=== PATIENT | female | born 1960 | race African-American/Black ===

== ENCOUNTER 2021-12-27 19:16 | Emergency (ER) | payer BC ==
--- NOTE | 2021-12-27 21:17 | RAD REPORT ---
EXAM DESCRIPTION: RAD - Chest Single View - 12/27/2021 9:10 pm CLINICAL HISTORY: syncope Chest pain. COMPARISON: No comparisons FINDINGS: Portable technique limits examination quality. The lungs are grossly clear. The heart is normal in size. No displaced fractures. IMPRESSION: No acute intrathoracic process suspected.
--- NOTE | 2021-12-27 21:27 | RAD REPORT ---
EXAM DESCRIPTION: CT - Head Brain Wo Cont - 12/27/2021 9:20 pm CLINICAL HISTORY: Syncope, simple, normal neuro exam COMPARISON: No comparisons TECHNIQUE: All CT scans are performed using dose optimization technique as appropriate and may inclu de automated exposure control or mA/KV adjustment according to patient size. FINDINGS: No intracranial hemorrhage, hydrocephalus or extra-axial fluid collection.No areas of brai n edema or evidence of midline shift. The paranasal sinuses and mastoids are clear. The calvarium is intact. IMPRESSION: No acute intracranial abnormality.
[2021-12-27 23:09] LABS: Absolute Lymphocytes (CBC) 1.2 K/uL (0.7-4.9); Hematocrit 37.8 % (36.0-45.0); MCV 94.4 fL (80-100); MPV 8.5 fL (7.6-11.3); Protime INR 1.06
[2021-12-27 23:46] LABS: ALT/SGPT 28 U/L (12-78); AST/SGOT 14 U/L (15-37); Albumin 3.9 g/dL (3.4-5.0); Alkaline Phosphatase 101 U/L (45-117); BUN Blood Urea Nitrogen 19 mg/dL (7-18); Bicarbonate 27 mmol/L (21-32); Bilirubin Total 0.2 mg/dL (0.2-1.0); Glomerular Filtration Rate 69 ml/min (=/>90); Glucose Level 127 mg/dL (74-106); Magnesium 2.4 mg/dL (1.8-2.4); NT PRO-BNP 60 pg/mL (<125); Potassium 4.2 mmol/L (3.5-5.1); Protein, Total 7.6 g/dL (6.4-8.2); Sodium Level 139 mmol/L (136-145); Troponin High Sensitivity 6.9 pg/mL (<58.9)
[2021-12-27 23:53] LABS: Bilirubin Direct < 0.1 mg/dL (0-0.2)
--- NOTE | 2021-12-28 00:53 | EDPHYS ---
Physician Documentation [facility] Name: Roxana Stacy Age: 61 yrs Sex: Female : 1960 Arrival Date: 12/27/2021 Time: 19:27 Bed 8 Private MD: ED Physician Kee Moon HPI: 12/27 19:35 This 61 yrs old Black Female presents to ER via EMS with complaints of Syncope. cp 19:35 The patient has experienced syncope, lost consciousness. cp 19:35 Onset: The symptoms/episode began/occurred just prior to arrival. Duration: The patient cp has had multiple episodes, that last an unknown period of time. Context: the episode(s) was witnessed, by a significant other, , occurred at home, occurred while the patient was sitting outside. Just prior to the episode the patient experienced no apparent symptoms. 19:35 Associated injury: The patient did not suffer any apparent associated injury. cp 19:35 Current symptoms: general weakness. EMS reports that syncopal episode was witnessed by cp and that patient had been smoking marijuana prior to syncopal episodes. Historical: - Allergies: 19:29 No Known Allergies; ss - Immunization history:: Flu vaccine is not up to date. - Social history:: Smoking status: Patient denies any tobacco usage or history of. Patient uses alcohol, on a daily basis. street drugs, marijuana. ROS: 19:40 Constitutional: Negative for body aches, chills, fever, poor PO intake. cp 19:40 Eyes: Negative for injury, pain, redness, and discharge. cp 19:40 ENT: Negative for drainage from ear(s), ear pain, rhinorrhea, sore throat, difficulty swallowing, difficulty handling secretions. 19:40 Neck: Negative for pain with movement, pain at rest, stiffness. 19:40 Cardiovascular: Negative for chest pain, edema, palpitations. 19:40 Respiratory: Negative for cough, shortness of breath, wheezing. 19:40 Abdomen/GI: Negative for abdominal pain, nausea, vomiting, and diarrhea, constipation, black/tarry stool, rectal bleeding. 19:40 Back: Negative for pain at rest, pain with movement. 19:40 : Negative for urinary symptoms. 19:40 Neuro: Positive for syncope, weakness, Negative for altered mental status, dizziness, headache, numbness, seizure activity. 19:40 All other systems are negative. Exam: 19:45 Constitutional: The patient appears in no acute distress, alert, awake, cp non-diaphoretic, non-toxic, well developed, well nourished, obese. 19:45 Head/Face: Normocephalic, atraumatic. cp 19:45 Eyes: Periorbital structures: appear normal, Pupils: equal, round, and reactive to light and accomodation, Extraocular movements: intact throughout, Conjunctiva: normal, no exudate, no injection, Sclera: no appreciated abnormality, Lids and lashes: appear normal, bilaterally. 19:45 ENT: External ear(s): are unremarkable, Nose: is normal, Mouth: Lips: moist, Oral mucosa: pink and intact, moist, Posterior pharynx: Airway: no evidence of obstruction, patent. 19:45 Neck: C-spine: vertebral tenderness, that is mild, crepitus, is not appreciated, ROM/movement: is normal, is supple, without pain, no range of motions limitations, no nuchal rigidity. 19:45 Chest/axilla: Inspection: normal. 19:45 Cardiovascular: Rate: normal, Rhythm: regular, Heart sounds: murmur, not appreciated, Edema: is not appreciated, JVD: is not appreciated. 19:45 Respiratory: the patient does not display signs of respiratory distress, Respirations: normal, no use of accessory muscles, no retractions, labored breathing, is not present, Breath sounds: are clear throughout, no decreased breath sounds, no stridor, no wheezing. 19:45 Abdomen/GI: Inspection: abdomen appears normal, Bowel sounds: active, all quadrants, Palpation: abdomen is soft and non-tender, in all quadrants. 19:45 Back: pain, is absent, ROM is normal. 19:45 Musculoskeletal/extremity: Exam is negative for decreased range of motion, deformity, injury. 19:45 Neuro: Orientation: to person, place \\T\\ time. Mentation: is normal, Cerebellar function: is grossly normal, Motor: moves all fours, strength is normal, Sensation: is normal. 22:35 ECG was reviewed by the Attending Physician. cp Vital Signs: 19:27 BP 124 / 67; Pulse 73; Resp 14; Temp 98.0(TE); Pulse Ox 95% on R/A; Weight 93.44 kg; ss Height 5 ft. 7 in. (170.18 cm); Pain 0/10; 22:30 BP 129 / 72; Pulse 80; Resp 18; Pulse Ox 100% on R/A; tw5 23:16 BP 122 / 71; Pulse 74; Resp 15; Pulse Ox 100% on R/A; kd3 23:56 BP 123 / 70; Pulse 75; Resp 15; Pulse Ox 100% on R/A; kd3 12/28 01:11 BP 124 / 72; Pulse 81; Resp 18; Pulse Ox 100% on R/A; kd3 12/27 19:27 Body Mass Index 32.26 (93.44 kg, 170.18 cm) ss MDM: 12/27 19:31 Patient medically screened. cp 20:00 Differential Diagnosis: cardiac arrhythmia, cerebrovascular accident, drug effect, cp emotional response, GI bleed, pseudo seizure, seizure, transient ischemic attack, vasovagal episode. 12/28 00:49 Data reviewed: vital signs, nurses notes, lab test result(s), EKG, radiologic studies, cp CT scan, plain films. Test interpretation: by ED physician or midlevel provider: ECG, plain radiologic studies. ED course: VSS. Discussed results of labs, EKG and radiology studies that were negative for significant findings at this time. Discussed continued observation vs discharge to home to f/u with family physician. Patient requesting discharge to home. 12/27 19:31 Order name: Basic Metabolic Panel; Complete Time: 00:14 cp 12/28 00:14 Interpretation: Normal except: GLUC 127; BUN 19; GFR 69. cp 12/27 19:31 Order name: CBC with Diff; Complete Time: 00:14 cp 12/28 00:15 Interpretation: Normal except: BALBIR% 75.9. cp 12/27 19:31 Order name: LFT's; Complete Time: 00:14 cp 12/28 00:15 Interpretation: Normal except: AST 14; GLOB 3.7. cp 12/27 19:31 Order name: Magnesium; Complete Time: 00:14 cp 12/27 19:31 Order name: NT PRO-BNP; Complete Time: 00:14 cp 12/27 19:31 Order name: PT-INR; Complete Time: 00:14 cp 12/27 19:31 Order name: Troponin HS; Complete Time: 00:14 cp 12/28 00:45 Interpretation: Reviewed. 12/27 19:31 Order name: XRAY Chest (1 view); Complete Time: 22:08 cp 12/27 22:08 Interpretation: Report review. 12/27 19:31 Order name: EKG; Complete Time: 19:31 cp 12/27 19:31 Order name: Cardiac monitoring; Complete Time: 22:06 cp 12/27 19:31 Order name: CT Head Brain wo Cont; Complete Time: 22:08 cp 12/27 19:44 Order name: COVID-19 SARS RT PCR (Document "Date of Onset" if Symptomatic); Complete cp Time: 00:14 12/28 00:25 Order name: ETOH Level; Complete Time: 00:44 cp 12/28 00:44 Interpretation: Reviewed. 12/28 00:25 Order name: LAB Add On cp 12/27 19:31 Order name: EKG - Nurse/Tech; Complete Time: 22:26 cp 12/27 19:31 Order name: IV Saline Lock; Complete Time: 22:26 cp 12/27 19:31 Order name: Labs collected and sent; Complete Time: 22:26 cp 12/27 19:31 Order name: O2 Per Protocol; Complete Time: 22:26 cp 12/27 19:31 Order name: O2 Sat Monitoring; Complete Time: 22:26 cp EC/06 22:35 Rate is 75 beats/min. Rhythm is regular. NC interval is normal. QRS interval is normal. cp QT interval is normal. T waves are Inverted in lead aVR. Interpreted by me. Reviewed by me. Administered Medications: No medications were administered Disposition: 12/28 04:40 Co-signature as Attending Physician, Kee Moon MD. rn Disposition Summary: 12/28/21 00:52 Discharge Ordered Location: Home cp Problem: new cp Symptoms: have improved cp Condition: Stable cp Diagnosis - Heat syncope, initial encounter cp Followup: cp - With: Private Physician - When: 1 - 2 days - Reason: Recheck today's complaints Discharge Instructions: - Discharge Summary Sheet cp - Syncope cp - Aspirin and Your Heart cp Forms: - Medication Reconciliation Form cp - Thank You Letter cp - Antibiotic Education cp - Prescription Opioid Use cp Signatures: Dispatcher [employer] EDKee Eisenberg MD MD rn Smirch, Shelby, RN RN ss Page, Corey, PA PA Kori Emerson tw5
--- NOTE | 2021-12-28 00:53 | ER ---
Nurse's Notes [facility] Name: Roxana Stacy Age: 61 yrs Sex: Female : 1960 Arrival Date: 12/27/2021 Time: 19:27 Bed 8 Private MD: Diagnosis: Heat syncope, initial encounter Presentation: 12/27 19:27 Chief complaint: EMS states: Syncopal episode witnessed by EMS staff after patient ss reportedly smoked marijuana. Pt has no complaints at this time. Appears drowsy. Initial BP 80/40s improved after 300 mL of NS. Coronavirus screen: Client denies travel out of the [place] in the last 14 days. Ebola Screen: Patient denies exposure to infectious person. Patient denies travel to an Ebola-affected area in the 21 days before illness onset. Initial Sepsis Screen: Does the patient meet any 2 criteria? No. Patient's initial sepsis screen is negative. Does the patient have a suspected source of infection? No. Patient's initial sepsis screen is negative. Risk Assessment: Do you want to hurt yourself or someone else? Patient reports no desire to harm self or others. Onset of symptoms was December 27, 2021. Care prior to arrival: Glucose check: 134. 19:27 Method Of Arrival: EMS: [facility] 19:27 Acuity: GARETH 3 ss Triage Assessment: 22:30 General: Appears in no apparent distress. Behavior is calm, cooperative, appropriate tw5 for age. Neuro: Denies weakness. 23:15 Neuro: Reports dizziness. kd3 Historical: - Allergies: 19:29 No Known Allergies; ss - Immunization history:: Flu vaccine is not up to date. - Social history:: Smoking status: Patient denies any tobacco usage or history of. Patient uses alcohol, on a daily basis. street drugs, marijuana. Screenin:26 Abuse screen: Denies threats or abuse. Denies injuries from another. Nutritional tw5 screening: No deficits noted. Tuberculosis screening: No symptoms or risk factors identified. Fall Risk None identified. Assessment: 22:26 General:. Pain: Denies pain. Neuro: Level of Consciousness is awake, alert, obeys tw5 commands, Oriented to person, place, time, situation. 22:26 General: reports " When she gets home she usually has a drink and a smoke, but tw5 what unusual was her passing out and not responding me. When she woke up she threw up.". Cardiovascular: Rhythm is sinus rhythm. Respiratory: Airway is patent Trachea midline Respiratory effort is even, unlabored. 23:16 General: Appears in no apparent distress. Behavior is calm, cooperative. kd3 Vital Signs: 19:27 BP 124 / 67; Pulse 73; Resp 14; Temp 98.0(TE); Pulse Ox 95% on R/A; Weight 93.44 kg; ss Height 5 ft. 7 in. (170.18 cm); Pain 0/10; 22:30 BP 129 / 72; Pulse 80; Resp 18; Pulse Ox 100% on R/A; tw5 23:16 BP 122 / 71; Pulse 74; Resp 15; Pulse Ox 100% on R/A; kd3 23:56 BP 123 / 70; Pulse 75; Resp 15; Pulse Ox 100% on R/A; kd3 12/28 01:11 BP 124 / 72; Pulse 81; Resp 18; Pulse Ox 100% on R/A; kd3 12/27 19:27 Body Mass Index 32.26 (93.44 kg, 170.18 cm) ED Course: 12/27 19:27 Patient arrived in ED. ss 19:27 Teto Bai PA is PHCP. cp 19:27 Kee Moon MD is Attending Physician. cp 19:29 Triage completed. ss 19:29 Arm band placed on right wrist. 20:29 Janine Bernard, RN is Primary Nurse. kd3 21:12 XRAY Chest (1 view) In Process Unspecified. EDMS 21:22 CT Head Brain wo Cont In Process Unspecified. EDMS 22:26 Awaiting lab results. tw5 22:26 Patient has correct armband on for positive identification. Placed in gown. Bed in low tw5 position. Call light in reach. Side rails up X2. Adult w/ patient. Client placed on continuous cardiac and pulse oximetry monitoring. NIBP monitoring applied. Door closed. Noise minimized. Lights dimmed. 22:26 Basic Metabolic Panel Sent. tw5 22:26 CBC with Diff Sent. tw5 22:26 LFT's Sent. tw5 22:26 Magnesium Sent. tw5 22:26 NT PRO-BNP Sent. tw5 22:26 PT-INR Sent. tw5 22: Troponin HS Sent. 22:26 COVID-19 SARS RT PCR (Document "Date of Onset" if Symptomatic) Sent. 22:26 Initial lab(s) drawn, by me, sent to lab. COVID swab sent to lab. Maintain EMS IV. tw5 Dressing intact. Good blood return noted. Site clean \\T\\ dry. Gauge \\T\\ site: 20 LAC. 12/28 01:10 No provider procedures requiring assistance completed. IV discontinued, intact, kd3 bleeding controlled, No redness/swelling at site. Pressure dressing applied. Administered Medications: No medications were administered Medication: 12/27 22:26 VIS not applicable for this client. Outcome: 12/28 00:52 Discharge ordered by . salome 01:11 Discharged to home via wheelchair, with family. kd3 01:11 Condition: stable 01:11 Discharge instructions given to patient, family, Instructed on discharge instructions, follow up and referral plans. 01:12 Patient left the ED. kd3 Signatures: Dispatcher [employer] EDGabriella Archer RN RN Teto Ingram PA PA cp Wood, Tiffany 5 Janine Bernard RN RN kd3
[2021-12-28 01:30] VITALS: TEMP 98
[2021-12-28 01:31] VITALS: O2SAT 100
[2021-12-28 01:35] VITALS: BP 124/72
--- NOTE | 2021-12-28 13:51 | EKG ---
Test Date: 2021-12-27 Test Time: 22:29:40 Mgmt Analyst: GLENNA MEASUREMENT RESULTS: Intervals: Rate: 75 MN: 182 QRSD: 76 QT: 386 QTc: 431 [place]: P: 59 MN: 182 QRS: -14 T: 15 INTERPRETIVE STATEMENTS: Normal sinus rhythm Septal infarct, age undetermined Abnormal ECG Compared to ECG 12/27/2021 22:28:49 Sinus arrhythmia no longer present Right superior axis no longer present Myocardial infarct finding still present Electronically Signed On 12-28-21 13:50:23 CDT by Woody Ogden
--- NOTE | 2021-12-28 13:52 | EKG ---
Test Date: 2021-12-27 Test Time: 22:28:49 Marketing Information Coordinator: GLENNA MEASUREMENT RESULTS: Intervals: Rate: 79 MS: 186 QRSD: 76 QT: 384 QTc: 440 [place]: P: MS: 186 QRS: 198 T: 141 INTERPRETIVE STATEMENTS: Normal sinus rhythm with sinus arrhythmia Right superior axis deviation Septal infarct, age undetermined Abnormal ECG No previous ECG available for comparison Electronically Signed On 12-28-21 13:50:24 CDT by Woody Ogden
== END 2021-12-28 01:12 | disposition home or self-care (01) ==
LOC: ER 19:16
DX: T67.1XXA Heat syncope, initial encounter (principal); Z20.822 Contact with and (suspected) exposure to COVID-19
CPT/HCPCS: 93005 ×2; 85025; 80048; 36415 ×2; 80320; 83735; 85610; 80076; 84484; 83880; 70450; 71045; U0003

== ENCOUNTER 2022-03-06 05:10 | Observation (INO) | payer BC ==
[2022-03-01 09:55] LABS: Absolute Lymphocytes (CBC) 1.9 K/uL (0.7-4.9); Hematocrit 38.3 % (36.0-45.0); Lymphocytes % 40.4 % (15.3-44.8); MCV 92.3 fL (80-100); RBC Red Blood Cell Count 4.15 M/uL (3.86-4.86)
[2022-03-01 10:00] LABS: Protime INR 0.94
[2022-03-01 10:08] LABS: Specific Gravity > 1.030 (1.005-1.030); Urine Bacteria <20 /HPF (<20); Urine Bilirubin NEGATIVE (Negative); Urine Blood Negative (Negative); Urine Clarity Clear (Clear); Urine Color Light-Yellow (Yellow); Urine Glucose NEGATIVE (Negative); Urine Mucus Slight /HPF (None Seen); Urine Protein TRACE (Negative); Urine RBC <5 /HPF (None Seen); Urine Urobilinogen Normal (Normal); Urine pH 5.5 (5.0-7.0)
[2022-03-01 10:10] LABS: SARS-CoV-2 Antigen Rapid Res Negative (Negative)
[2022-03-01 10:14] LABS: Albumin 3.9 g/dL (3.4-5.0); Bilirubin Total 0.3 mg/dL (0.2-1.0); Potassium 4.1 mmol/L (3.5-5.1); Protein, Total 7.9 g/dL (6.4-8.2)
[2022-03-06] MEDS ORDERED: GABAPENTIN 100 MG CAP ONE (05:51)
[2022-03-06] MEDS ORDERED: CELECOXIB 100 MG CAPSULE ONE (05:51)
[2022-03-06] MEDS ORDERED: Oxycodone HCl/Acetaminophen 1 TAB TAB ONE (05:52)
[2022-03-06] MEDS ORDERED: ACETAMINOPHEN 500 MG TAB ONE (05:52)
[2022-03-06] MEDS ORDERED: CEFAZOLIN 2 GM IN 0.9% NACL 2 GM/100 ML BAG ONE (05:52)
[2022-03-06] MEDS ORDERED: Ringers Lactate 1,000 ML IV ONE (05:52)
[2022-03-06] MEDS ORDERED: propofoL 200 MG/20 ML VIAL IV ONE (06:16)
[2022-03-06] MEDS ORDERED: FENTANYL CITR 100 MCG/2 ML ONE (06:16)
[2022-03-06] MEDS ORDERED: MIDAZOLAM HCL 2 MG/2 ML INJ ONE (06:16)
[2022-03-06] MEDS ORDERED: LIDOCAINE 2% MPF 5 ML VIAL ONE (06:16)
[2022-03-06] MEDS ORDERED: BUPIVACAINE 0.5% Inj,MDV 50 mL VIAL ONE (06:23)
[2022-03-06] MEDS ORDERED: LIDOCAINE 1% MPF 5 ML VIAL ONE (06:23)
[2022-03-06] MEDS ORDERED: dexAMETHasone 4 MG/ML VIAL ONE (06:23)
[2022-03-06] MEDS ORDERED: BUPIVACAINE 0.25% PF 10 ML VIAL ONE (06:23)
[2022-03-06] MEDS ORDERED: TRANEXAMIC ACID 1,000 MG/10 ML VIAL IV ONE (07:11)
[2022-03-06] MEDS ORDERED: HYDROMORPHONE HCL 1 MG/ML INJ ONE (07:12)
[2022-03-06] MEDS ORDERED: ONDANSETRON 4 MG/2 ML VIAL ONE (07:19)
[2022-03-06] MEDS ORDERED: DOCUSATE NA 100 MG CAP PO PRN (09:43)
[2022-03-06] MEDS ORDERED: ONDANSETRON 4 MG/2 ML VIAL IV PRN (09:43)
--- NOTE | 2022-03-06 09:43 | P.BOP ---
Preoperative diagnosis: right knee arthritis Postoperative diagnosis: same Primary procedure: right total knee arthoplasty Estimated blood loss: 100 ccs Anesthesia: General Complications: None Transferred to: Recovery Room Condition: Good
--- OUTSIDE RECORDS SUMMARY | 2022-03-06 11:05 | XMS REPORT | Continuity of Care Document ---
:1960 Author Organization [facility] t Address [address] [place] [address] Care Team Providers Name Role Phone Maranda Kwon MD Primary Care Physician Maranda Kwon MD Attending Clinician [phone] Doctor Unassigned, [place] Attending Clinician Unavailable Payers Payer Name Policy Type Policy Number Effective Date Expiration Date S ource Problems Condition Condition Condition Status Onset Resolution Last Treating Co mments Source Name Details Category Date Date Treatment Clinician Date Diet-contr Diet-contr Disease Active U nivers olled olled 3-17 ity of diabetes diabetes 00:00: [place] mellitus mellitus 00 Medica l Branch Chronic Chronic Disease Active Univers pain of pain of 3-17 [place] Obesity Obesity Disease Active 2018- Univers (BMI (BMI 6-06 ity of 30-39.9) 30-39.9) 00:00: [address] Allergies, Adverse Reactions, Alerts This patient has no known allergies or adverse reactions. Social History Social Habit Start Date Stop Date Quantity Comments Source History of Cigar Smoker University o f tobacco use [facility] Exposure to 2022-01-15 2022-01-25 Not sure University SARS-CoV-2 00:00:00 14:19:00 [place] [facility] (event) [facility] Cigarette 2022-01-25 2022-01-25 University of pack-years 00:00:00 00:00:00 [facility] Tobacco use and 2022-01-25 2022-01-25 Smokeless tobacco Un iversity of exposure 00:00:00 00:00:00 non-user [facility] Alcohol intake 2022-01-25 2022-01-25 .14 /d University of 00:00:00 00:00:00 [facility] Tobacco Comment 2022-01-25 2022-01-25 ciggars Universit y of 00:00:00 00:00:00 occasionally [place] Medica l Branch History [facility] 2018-11-27 2018-11-27 5 University o f Alcohol Frequency 00:00:00 00:00:00 [place] M edical Branch History [facility] 2018-11-27 2018-11-27 1 University o f Alcohol Std 00:00:00 00:00:00 [place] Medical Drinks Branch History [facility] 2018-11-27 2018-11-27 1 [place] o f Alcohol Binge 00:00:00 00:00:00 [place] Medic al Branch Alcohol Comment 2018-11-27 2018-11-27 to get relaxed Unive rsity of 00:00:00 00:00:00 [facility] Sex Assigned At [birth year] Universit y of 00:00:00 00:00:00 [facility] Smoking Status Start Date Stop Date Source Light tobacco smoker 2022-01-25 00:00:00 Univers ity of [facility] Medications Ordered Filled Start Stop Current Ordering Indication Dosage Frequency Signature Comments Components Source Medication Medication Date Date Medication? Clinician (SIG) Name Name allopurinoL Yes [id number] 100mg Take 1 Univers 100 mg 8-09 tablet by ity of tablet 00:00: mouth in [place] [address] the Medical morning Branch and 1 tablet in the evening. diclofenac Yes [id number] TAKE 1 Univers 75 mg EC 8-09 TABLET BY ity of tablet 00:00: MOUTH [place] [address] THREE Medical TIMES Branch DAILY WITH FOOD allopurinoL Yes [id number] 100mg Take 1 Univers 100 mg 8-09 tablet by ity of tablet 00:00: mouth in [place] [address] the Medical morning Branch and 1 tablet in the evening. diclofenac Yes [id number] TAKE 1 Univers 75 mg EC 809 TABLET BY ity of tablet 00:00: MOUTH [place] [address] THREE Medical TIMES [place] DAILY WITH FOOD Immunizations Ordered Filled Immunization Date Status Comments Sourc e Immunization Name Name SARS-COV-2 COVID-19 2021-06-19 Completed Unive rsity of CHARLES/J&J VACCINE 00:00:00 [facility] SARS-COV-2 COVID-19 2021-06-19 Completed Unive rsity of CHARLES/J&J VACCINE 00:00:00 [facility] SARS-COV-2 COVID-19 2020-09-02 Completed Unive rsity of CHARLES/J&J VACCINE 00:00:00 [facility] SARS-COV-2 COVID-19 2020-09-02 Completed Unive rsity of CHARLES/J&J VACCINE 00:00:00 [facility] Vital Signs Vital Name Observation Time Observation Value Comments Source Systolic blood 2022-02-15 20:21:00 126 mm[Hg] Univer sity of pressure [facility] Diastolic blood 2022-02-15 20:21:00 73 mm[Hg] Unive rsity of pressure [facility] Heart rate 2022-02-15 20:21:00 92 /min [facility] Body temperature 2022-02-15 20:20:00 36.22 [facility] Respiratory rate 2022-02-15 20:20:00 18 /min [facility] Body height 2022-02-15 20:20:00 170.2 cm [facility] Body weight 2022-02-15 20:20:00 90.266 kg [facility] BMI 2022-02-15 20:20:00 31.17 kg/m2 [facility] Procedures Procedure Date / Time Performed Performing Clinician Sourkaela e POCT HEMOGLOBIN A1C 2022-02-15 21:09:00 Maranda Kwon [facility] TEST A [facility] MEDICAL 2022-02-05 05:01:00 Doctor Unassigned, No [facility]iver [facility] RELEASE/CLEARANCE Name Medical Branch FORMS Encounters Start End Encounter Admission Attending Care Care Encounter Source Date/Time Date/Time Type Type Clinicians Facility Department ID 2022-02-09 Outpatient [facility]LMLC ST[facility]C [id number] Common 10:07:04 [facility] 2022-02-05 Outpatient STLMLC STLMLC [id number] Common 14:31:04 [facility] 2022-03-05 2022-03-05 ambulatory STLMLC STLMLC [id number] Common 00:00:00 00:00:00 [facility] 2022-02-15 2022-02-15 Office Cher ALAMIRAH [id number] [facility] [place] [place] 15:00:00 16:09:57 Visit Maranda DAVID [id number] [id number] [id number] [address] 2022-02-05 2022-02-05 Orders Doctor SHELLY [id number] Univers 00:00:00 00:00:00 Only Unassigned, FINA [id number] ity of [place] [facility] [id number] [place] [id number] [address] 2022-02-05 2022-02-05 ambulatory STLMLC STLMLC [id number] Common 00:00:00 00:00:00 [facility] 2022-02-05 2022-02-05 ambulatory STLMLC STLMLC [id number] Common 00:00:00 00:00:00 [facility] Results Test Description Test Time Test Comments Results Result Comments Source POCT HEMOGLOBIN A1C TEST 2022-02-15 21:10:00 Test Item Value Reference Range Interpretation Comme nts POCT HBA1C (test code = 4548-4) 6.3 % 4-6 A Lab Interpretation (test code = 73940-1) Abnormal [facility]
[2022-03-06 11:36] VITALS: BMI 31.1
--- NOTE | 2022-03-06 12:26 | P.CNS ---
Date of Consult: 03/06/22 Reason for Consult: Medical Management Requesting Physician: Philippe Rodriguez Chief Complaint: S/P Right Knee Replacement History of Present Illness: Ms. Roxana Stacy is a 61 year old female who has a past medical history of prediabetes, gout, and osteoarthritis who presents to the [facility] for a scheduled right total knee arthroplasty. Earlier today, she underwent a right total knee arthroplasty with Dr. Rodriguez, without any apparent complications. General Internal Medicine was asked to consult on her case for medical management. She was seen in the PACU and appeared comfortable. She reports that her pain is well controlled. She endorses no major medical issues outside of arthritis and gout. She reports having arthritis and knee pain for years. She denies any obvious inciting or alleviating factors. She denies history of rheumatoid arthritis. She has tried taking [id number] NSAIDs, without alleviation of her symptoms. Prior to surgery, her pain was a 10/10 in severity. Currently, she has no concerns or complaints. Post-operatively, her vital signs are stable. She will be admitted to the Orthopedic Surgery service under observation status to a Med/Surg floor. Allergies No Known Allergies Allergy (Verified 03/06/22 06:32) Home medications list reviewed: Yes Home Medications: Allopurinol 100 mg PO BID 03/01/22 Collagen/Biotin/Ascorbic Acid [Collagen 1500 Plus C Capsule] 1 each PO DAILY 03/01/22 Diclofenac Sodium [Voltaren] 75 mg PO BID 03/01/22 Multivitamin 1 each PO DAILY 03/01/22 - Past Medical/Surgical History Diabetic: No -: borderline diabetes, no treatement -: arthritis -: gout -: knee injections -: right knee arthroscopy - Family History Father History Unknown: Yes Mother History Unknown: Yes - Social History Smoking Status: Light Tobacco smoker (1-9 cigarettes/day) Alcohol use: Yes CD- Drugs: No Caffeine use: Yes Place of Residence: Home Review of Systems 10-point ROS is otherwise unremarkable General: Unremarkable Eyes: Unremarkable ENT: Unremarkable Respiratory: Unremarkable Cardiovascular: Unremarkable Gastrointestinal: Unremarkable Genitourinary: Unremarkable Musculoskeletal: Foot Pain (chronic, now post-op TKA) Integumentary: Unremarkable Neurological: Unremarkable Lymphatics: Unremarkable Physical Examination Temp Pulse Resp BP Pulse Ox 97.0 F 79 16 146/71 H 99 03/06/22 11:31 03/06/22 11:31 03/06/22 11:31 03/06/22 11:31 03/06/22 11:31 General: Alert, In no apparent distress, Oriented x3 HEENT: Atraumatic, PERRLA, Mucous membr. moist/pink, EOMI, Sclerae nonicteric Neck: Supple, JVD not distended Respiratory: Clear to auscultation bilaterally, Normal air movement Cardiovascular: No edema, Regular rate/rhythm, Normal S1 S2, No gallops, No rubs, No murmurs Gastrointestinal: Normal bowel sounds, Soft and benign, Non-distended Musculoskeletal: No clubbing, Other (right knee in surgical dressing and elevated) Integumentary: No rashes Neurological: Normal speech, Cranial nerves 3-12 intact, Normal affect Conclusions/Impression: DIAGNOSES: # Right Knee Osteoarthritis s/p Total Right Knee Arthroplasty (03/06/2022) # Tobacco Use Disorder # Gout # Prediabetes RECOMMENDATIONS: - Consult PT/OT - Consider obtaining Hgb A1c - Can resume home allopurinol when tolerating PO - Would avoid home Diclofenac and other NSAIDs due to risk of bleeding - Pain control per primary team - Tobacco cessation counseling - Can be discharged once cleared by Orthopedic Surgery Thank you for this consultation. Internal Medicine will continue to following along. Feng Juarez M.D.
[2022-03-06] MEDS: CEFAZOLIN 1 GM in NA CHLORIDE 0.9% 50 ML IVPB SCH (17:11)
--- NOTE | 2022-03-06 22:01 | OP ---
Date of Procedure: 03/06/2022 Surgeon: Philippe Rodriguez MD Preoperative Diagnosis: Severe right knee arthritis with debilitating pain despite extensive conserv ative management. Postoperative Diagnosis: Severe right knee arthritis with debilitating pain despite extensive conser vative management. Procedure: Right total knee arthroplasty using the [employer] system. Estimated Blood Loss: 100 cc. Complications: There were no complications. Specimen: No pathology specimens sent. Indication For Operation: Patient is a 61-year-old female, who has seen multiple care providers in t he past with injections. She has also had arthroscopy. Unfortunately, none of these led to lasting or significant relief. She came to see me in my office and x-rays were reviewed, which reveal she artis s significant arthritic changes and risks, benefits, and alternatives to total knee arthroplasty have been discussed with the patient. She states she understands things as presented and wishes to proce ed. Procedure In Detail: Patient was taken to the operating room and placed in the supine position. Gen eral anesthesia was obtained by staff. Following this, a well-padded tourniquet was placed on superi or right thigh. Right lower extremity was then prepped and draped in usual sterile fashion for proce margy. Following this, a standard anterior incision was taken down carefully through skin, only metic ulous hemostasis being maintained using Bovie electrocautery. The appropriate level was used and fur ther dissected. After this, a standard medial parapatellar arthrotomy was then performed with a Faiza ss needle of approximately 30 cc of rather normal-appearing synovial fluid. This was followed by rem oval of some fat pad as well as the medial and lateral menisci and anterior cruciate ligament. Intra medullary alignment guide was then placed without difficulty and the distal femur was cut. The femor al cutting block was then placed and the standard cuts were made. After this, attention was then tur marko to the tibia and it was then cut. It was then trialed and it comes to full extension, may be vincent y slightly tight in flexion. However, decision was made not to cut more slope as it was very slight, but was well balanced in extension. Patella was then calipered and cut and then prepped for the tri al. The trial was placed and glides without any difficulty or sign of subluxation. The trial instru ments were removed. The box was cut. The tibia was punched. The wound was copiously irrigated and the bone plug was placed. The final components with the exception of the tibial polyethylene were th en cemented into place. The trial polyethylene size 12 was then used was brought into extension whil e the cement hardened. Any unsupported cement was removed. As the cement was hardened, the trial po lyethylene was removed and replaced with a 12 mm final polyethylene and locked with a locking bar. T he wound was copiously irrigated. The knee comes to full flexion extension with good tracking of the patella and appears to be balanced both medially and laterally. The extensor mechanism was then rep aired in a watertight fashion using heavy Ethibond sutures, this was followed by irrigation and closu re of skin using Vicryl followed by eren. Patient was then placed in a well-padded sterile dressi ng, awakened, and taken to recovery room in good condition. There were no complications. /DANIELLE Voice ID: [id number] Report ID: [id number]
[2022-03-06] MEDS: HYDROCODONE/APAP 7.5/325 MG TAB PO PRN (22:29)
[2022-03-07] MEDS: CEFAZOLIN 1 GM in NA CHLORIDE 0.9% 50 ML IVPB SCH ×2 (01:19→08:42)
[2022-03-07 05:56] LABS: Hematocrit 35.8 % (36.0-45.0)
[2022-03-07] MEDS ORDERED: ENOXAPARIN 30 MG/0.3 ML SQ SCH (06:00)
[2022-03-07 08:55] VITALS: O2SAT 97
[2022-03-07 11:36] VITALS: BP 140/76; TEMP 98.1
[2022-03-07] MEDS: HYDROCODONE/APAP 7.5/325 MG TAB PO PRN (11:38)
--- NOTE | 2022-03-07 13:47 | P.PN ---
Subjective Date of Service: 03/07/22 Chief Complaint: S/P Right Knee Replacement Subjective: No new changes No acute events overnight. She reports only mild right knee pain. She is up working with Physical Therapy this morning on rounds. Review of Systems 10-point ROS is otherwise unremarkable Musculoskeletal: Leg Pain (right knee pain) Physical Examination - Vital Signs Temperature: 98.1 F Blood Pressure: 140/76 Pulse: 89 Respirations: 18 Pulse Ox (%): 96 - Studies Laboratory Data (last 24 hrs) 03/07/22 05:25: Hgb 12.3, Hct 35.8 L Assessment And Plan - Plan General: Alert, In no apparent distress, Oriented x3 HEENT: Atraumatic, PERRLA, Mucous membr. moist/pink, EOMI, Sclerae nonicteric Neck: Supple, JVD not distended Respiratory: Clear to auscultation bilaterally, Normal air movement Cardiovascular: No edema, Regular rate/rhythm, Normal S1 S2, No gallops, No rubs, No murmurs Gastrointestinal: Normal bowel sounds, Soft and benign, Non-distended Musculoskeletal: No clubbing, Other (right knee in surgical dressing and elevated) Integumentary: No rashes Neurological: Normal speech, Cranial nerves 3-12 intact, Normal affect DIAGNOSES: # Right Knee Osteoarthritis s/p Total Right Knee Arthroplasty (03/06/2022) # Tobacco Use Disorder # Gout # Prediabetes RECOMMENDATIONS: - Okay to be discharged from a medical standpoint - Would avoid home Diclofenac and other NSAIDs due to risk of bleeding - Pain control per primary team - Tobacco cessation counseling Thank you for this consultation. Internal Medicine will continue to following along while hospitalized. Feng Juarez M.D.
== END 2022-03-07 12:38 | disposition home health service (06) ==
LOC: PRE 05:10 → 2ND 11:03
PROVIDERS: ADMIT Orthopaedic Surgery; ATTEND Orthopaedic Surgery
PROC: 0SRC069 Replacement of Right Knee Joint with Oxidized Zirconium on Polyethylene Synthetic Substitute, Cemented, Open Approach (ICD-10-PCS; principal; 2022-03-06 07:00)
DX: M17.11 Unilateral primary osteoarthritis, right knee (principal); M10.9 Gout, unspecified; R73.03 Prediabetes; F17.210 Nicotine dependence, cigarettes, uncomplicated; Z20.822 Contact with and (suspected) exposure to COVID-19
CPT/HCPCS: 36415; 80053; 81001; 85014; 85018; 85025; 85610; 85730; 86850; 86900; 86901; 87811; 88304; 88311; 94010; 97110; 97116; 97139; 97161; 97530; G0378; G0379; J0690; J1100; J1170; J1650; J2001; J2250; J2405; J2704; J3010; J7120